=== PATIENT | male | born 1995 | race Caucasian/White ===

== ENCOUNTER 2018-10-15 14:36 | Emergency (ER) | payer SELFPAY ==
[~2018-10-15] VITALS: Ht 175.3 cm; Wt 72.6 kg
--- OUTSIDE RECORDS SUMMARY | 2018-10-15 14:41 | XMS REPORT | Continuity of Care Document ---
Author Organization Unknown Address Unknown Allergies There is no data. Medications There is no data. Problems Date Dx Coded Attending Type Code Diagnosis Diagnosed By 12/21/2013 YASMINE MUNGUIA MD V03.89 [facility]EN[facility] DX Procedures There is no data. Results There is no data. Encounters ACCT No. Visit Date/Time Discharge Status Pt. Type Provider Facility Loc./Unit Complaint [id number] 09/25/2018 10:00:00 09/25/2018 23:59:59 [facility] Outpatient [facility] [id number] 12/21/2013 11:19:00 12/21/2013 23:59:59 [facility] Outpatient YASMINE MUNGUIA MD
--- NOTE | 2018-10-15 14:56 | ED EENT ---
History of Present Illness General Chief Complaint: Facial Problems Stated Complaint: NOSE/LIPS SWOLLEN - FACIAL INJ Source: patient, family, RN notes reviewed Exam Limitations: no limitations History of Present Illness Date Seen by Provider: Oct 15, 2018 Time Seen by Provider: 14:47 Timing/Duration: abrupt, this afternoon Location: nose, mouth Prearrival Treatment: no prearrival treatment Associated Symptoms: denies symptoms, facial pain/swelling, nasal congestion/drainage Allergies and Home Medications Allergies Coded Allergies: No Known Drug Allergies (Unverified , 10/15/18) Physical Exam Vital Signs Vital Signs - First Documented 10/15/18 14:40 Temp 97.0 Pulse 90 Resp 16 B/P (MAP) 145/75 (98) Pulse Ox 97 O2 Delivery Room Air Height, Weight, BMI Height: '" Weight: lbs. oz. kg; BMI Method: Progress/Results/Core Measures Results/Orders My Orders Orders - MARY CROWELL DO Ct Head/Maxillofacial Wo (10/15/18 14:54) Vital Signs/I&O 10/15/18 14:40 Temp 97.0 Pulse 90 Resp 16 B/P (MAP) 145/75 (98) Pulse Ox 97 O2 Delivery Room Air Departure Impression Primary Impression: Contusion of face Additional Impressions: Nasal bone fracture Epistaxis due to trauma Abrasion of lip Disposition: 01 HOME, SELF-CARE Condition: Stable Departure-Patient Inst. Decision time for Depature: 15:42 Referrals: MERLE IRBY MD (PCP) Primary Care Physician Patient Instructions: Nose Fracture (DC), Nosebleeds (DC), Contusion (DC) Add. Discharge Instructions: All discharge instructions reviewed with patient and/or family. Voiced understanding. RECOMMEND 400 mg OF IBUPROFEN EVERY 6 HOURS NEEDED FOR PAIN/SWELLING. SWISH AND SPIT 50-50 PEROXIDE AND WATER AFTER MEALS AND BEFORE BEDTIME UNTIL YOUR INNER LIP IS HEALED UP. MARY CROWELL DO Oct 15, 2018 14:56
--- NOTE | 2018-10-15 15:25 | Diagnostic Imaging Report ---
PROCEDURE: CT head and maxillofacial without contrast. TECHNIQUE: Multiple contiguous axial images were obtained through the head and facial bones without the use of intravenous contrast. Auto Exposure Controls were utilized during the CT exam to meet ALARA standards for radiation dose reduction. INDICATION: Head injury. Nose and lip swelling. COMPARISON: None. FINDINGS: No intracranial hemorrhage, mass effect, hydrocephalus or extra-axial fluid collection. No CT evidence of a territorial infarction. Skull base and calvarium are intact. Minimal displaced nasal bone fractures. No other maxillofacial fractures. Mild mucosal thickening in the floor of the left maxillary sinus. 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 Normal alignment of the temporomandibular joints. The mandible is intact. IMPRESSION: Minimally displaced nasal bone fractures. No other fracture. No acute intracranial CT findings. Dictated by: Dictated on workstation # [id number]
[2018-10-15] MEDS ORDERED: AMOX-358 PO (15:49)
[2018-10-15 15:55] VITALS: BP 145/75
== END 2018-10-15 15:55 | disposition home or self-care (01) ==
LOC: ER FS 14:38
DX: S02.2XXA Fracture of nasal bones, initial encounter for closed fracture (principal); S00.83XA Contusion of other part of head, initial encounter; S00.511A Abrasion of lip, initial encounter; R04.0 Epistaxis; X58.XXXA Exposure to other specified factors, initial encounter
CPT/HCPCS: 70450; 70486